=== PATIENT | female | born 1970 | race Caucasian/White ===

== ENCOUNTER 2020-04-26 17:51 | Emergency (ER) | payer OTHER ==
[~2020-04-26] VITALS: Ht 154.9 cm; Wt 68.0 kg
[2020-04-26 18:17] VITALS: BP_SYST 103
--- NOTE | 2020-04-26 18:22 | NUR ---
Patient triaged and placed in waiting room. VSS and patient appears in no acute distress at this time. Accompanied by SELF, awaiting available bed, and MD notified of need for MSE.
--- NOTE | 2020-04-26 19:50 | NUR ---
Patient to ER CHAIR to gown for evaluation. Side rails up.
--- NOTE | 2020-04-26 19:52 | NUR ---
Patient brought in complaining of left 5th finger pain and wrist pain after fall. Patient reports that she was walking and fell falling forward catching her fall with her left hand. Abrasion noted to bilateral knees and left 5th finger. Pain 2/10. No other complaints/injuries per patient or as noted. Will continue to monitor.
--- NOTE | 2020-04-26 19:54 | NUR ---
ER Dr. HERNANDEZ at bedside examining patient.
[2020-04-26] MEDS ORDERED: BACITRACIN OPHTHALMIC OINT.3.5 GM OP SCH (20:15)
[2020-04-26] MEDS ORDERED: BACITRACIN 1 GM OINT TP ONE (20:25)
[2020-04-26] MEDS ORDERED: LIDOCAINE 1%, 20 ML MDV 20 ML ONE (20:30)
--- NOTE | 2020-04-26 20:39 | NUR ---
AT BEDSIDE FOR REDUCTION OF LEFT 5TH FINGER
[2020-04-26 21:27] VITALS: BP_SYST 124
--- NOTE | 2020-04-26 21:27 | NUR ---
Patient given written and verbal discharge instructions and verbalizes understanding. ER MD discussed with patient the results and treatment provided. Patient in stable condition. ID arm band removed. Rx of Naprosyn given. Patient educated on pain management and to follow up with PMD. Pain Scale 0/10 Opportunity for questions provided and answered. Medication side effect fact sheet provided.
== END 2020-04-26 21:27 | disposition home or self-care (01) ==
LOC: SED 17:51
DX: S62.317A Displaced fracture of base of fifth metacarpal bone, left hand, initial encounter for closed fracture (principal); G43.909 Migraine, unspecified, not intractable, without status migrainosus; Z88.0 Allergy status to penicillin; W18.39XA Other fall on same level, initial encounter; Y93.89 Activity, other specified; Y92.89 Other specified places as the place of occurrence of the external cause; Y99.8 Other external cause status
CPT/HCPCS: 26605; 73110; 73140; 99284; J2001